=== PATIENT | female | born 1960 | race Caucasian/White ===

== ENCOUNTER 2021-05-10 15:02 | Emergency (ER) | payer OTHER ==
[~2021-05-10 15:02] MED LIST: ATARAX25 MG PO; MIRTAZAPINE7.5 MG PO
[2021-05-10] MEDS ORDERED: MEDROL 4MG DOSEP4 MG PO (17:55)
[2021-05-10] MEDS ORDERED: CYCLOBENZAPRINE10 MG PO (17:55)
== END 2021-05-10 17:59 | disposition home or self-care (01) ==
LOC: FER 15:02
DX: S13.4XXA Sprain of ligaments of cervical spine, initial encounter (principal); M62.838 Other muscle spasm; M54.32 Sciatica, left side; V49.40XA Driver injured in collision with unspecified motor vehicles in traffic accident, initial encounter
CPT/HCPCS: 72125; 73110; 73502; 73564; 74018